=== PATIENT | male | born 1960 | race Caucasian/White ===

== ENCOUNTER 2017-09-20 19:23 | Emergency (ER) | payer BC ==
[2017-09-20 19:42] VITALS: TEMP 98.8
[2017-09-20] MEDS ORDERED: DIAZEPAM 5 MG/ML 2 ML INJ IVP STA (20:15)
[2017-09-20] MEDS ORDERED: GLUCAGON 1 MG/ML VIAL IVP STA (20:15)
[2017-09-20] MEDS ORDERED: SODIUM CHLORIDE 0.9% 500 ML IV ONE (20:16)
--- NOTE | 2017-09-20 20:19 | ED ---
General Adult HPI - General Chief complaint: ENT Stated complaint: food caught in throat Time Seen by Provider: 09/20/17 19:53 Source: patient Mode of arrival: ambulatory Limitations: no limitations - History of Present Illness Initial comments: 56 years old gentleman got some mild meat stuck in his throat he was eating about 1.5R c-collar he feels it's stuck right below the neck is able to breathe well but he is not able to swallow anything he is not drooling though he is swallowing his saliva but he said he is not able to drink anything. No headache no chest pain or shortness of breath has difficulty swallowing no abdominal pain no frequency urgency dysuria - Related Data Home Medications Medication Instructions Recorded Confirmed Ezetimibe [Zetia] 10 mg PO HS 05/31/14 09/20/17 Allergies Allergy/AdvReac Type Severity Reaction Status Date / Time No Known Allergies Allergy Verified 09/20/17 20:21 Review of Systems ROS Statement: Those systems with pertinent positive or pertinent negative responses have been documented in the HPI. ROS Other: All systems not noted in ROS Statement are negative. Past Medical History Past Medical History: Asthma, Hyperlipidemia History of Any Multi-Drug Resistant Organisms: None Reported Past Surgical History: Orthopedic Surgery Past Psychological History: No Psychological Hx Reported Smoking Status: Never smoker Past Alcohol Use History: Occasional Past Drug Use History: None Reported General Exam - General Exam Comments Initial Comments: General: The patient is awake and alert, in no distress, and does not appear acutely ill, anxious he is definitely not drooling Skin: Skin is warm and dry and no rashes or lesions are noted. Eye: Pupils are equal, round and reactive to light, extra-ocular movements are intact; there is normal conjunctiva bilaterally. Ears, nose, mouth and throat: There are moist mucous membranes and no oral lesions. Neck: The neck is supple, there is no tenderness or JVD. Cardiovascular: There is a regular rate and rhythm. No murmur, rub or gallop is appreciated. Respiratory: To auscultation bilateral, no wheezing no rhonchi no distress respiratory packer noticed Gastrointestinal: Soft, non-distended, non-tender abdomen without masses or organomegaly noted. There is no rebound or guarding present. Bowel sounds are unremarkable. Back: There is no tenderness to palpation in the midline. There is no obvious deformity. Musculoskeletal: Normal ROM, no tenderness, There is no pedal edema. There is no calf tenderness or swelling. No cords were appreciated. Neurological: CN II-XII intact, Cranial nerves III through XII are intact. There are no obvious motor or sensory deficits. Coordination appears grossly intact. Speech is normal. Psychiatric: Cooperative, appropriate mood & affect, normal judgment. Limitations: no limitations Course Vital Signs 09/20/17 19:40 Temperature 98.8 F Pulse Rate 99 Respiratory 16 Rate Blood Pressure 153/80 O2 Sat by Pulse 98 Oximetry Patient was reassessed at down at 2145 and he feels great he is able to drink me he feels that the piece of meat stuck in his esophagus has gone down and is right to go home, I offered him a EGD by Dr. Cheng/Dr. Gomez he said he is going to see his family doctor and he'll arrange that through his family doctor Disposition Clinical Impression: Foreign body in esophagus Disposition: HOME SELF-CARE Condition: Good Instructions: Esophageal Foreign Body (ED) Referrals: Miguel Frederick MD [Primary Care Provider] - 1-2 days
[2017-09-20] MEDS ORDERED: SODIUM CHLORIDE 0.9% 1,000 ML IV SCH (20:30)
--- NOTE | 2017-09-20 20:57 | XR ---
EXAMINATION TYPE: XR chest 2V DATE OF EXAM: 09/20/2017 COMPARISON: 05/25/1714 HISTORY: Choking incident and shortness of breath TECHNIQUE: Frontal and lateral views of the chest are obtained. FINDINGS: There is no focal air space opacity, pleural effusion, or pneumothorax seen. The cardiac silhouette size is within normal limits. The osseous structures are intact. No radiopaque foreign b martha. Left hemidiaphragm elevation. Prominent right epicardial fat pad is noted. Deep sulcus on the ri ght is unchanged from the prior. IMPRESSION: No acute cardiopulmonary process. No radiopaque foreign body.
--- NOTE | 2017-09-20 20:59 | XR ---
EXAMINATION TYPE: XR soft tissue neck DATE OF EXAM: 09/20/2017 COMPARISON: NONE HISTORY: Choking incident. Questionable foreign body. TECHNIQUE: Frontal and lateral views of the soft tissues the neck were obtained. FINDINGS: No radiopaque foreign body is seen within the airway or esophagus. Dental fillings are seen within the maxilla and mandible. Oropharynx and nasopharynx appear patent. Prevertebral soft tissues are within normal limits. Mild degenerative changes at C5-C6 are noted with straightening of usual c ervical lordosis. Lung apices are well aerated. IMPRESSION: No pharyngeal narrowing, prevertebral soft tissue swelling or radiopaque foreign body.
[2017-09-20 22:10] VITALS: BP 133/75; PULSE 90; RESP 18
== END 2017-09-20 22:13 | disposition home or self-care (01) ==
LOC: EC 19:23
DX: T18.128A Food in esophagus causing other injury, initial encounter (principal); E78.5 Hyperlipidemia, unspecified; Z79.899 Other long term (current) drug therapy
CPT/HCPCS: 70360; 71046; 99283; 96374; 96375; 96361 ×2; J1610; J3360

== ENCOUNTER 2019-07-25 13:45 | Emergency (ER) | payer BC, OTHER ==
[2019-07-25 14:13] VITALS: BP 130/76; PULSE 75; RESP 20; TEMP 98.6
--- NOTE | 2019-07-25 14:52 | ED ---
Fall HPI - General Chief Complaint: Fall Stated Complaint: Fell/rt elbow hip pain-[facility] Time Seen by Provider: 07/25/19 14:28 Source: patient Mode of arrival: ambulatory - History of Present Illness Initial Comments: Patient is a 58-year-old male presenting to emergency Department with a chief complaint of a fall. Patient reports he was an ice patch when he slipped and fell on his right side. Patient does report making contact with his left hip and elbow. Patient reports the pain level is minimal. He reports full range of motion in the elbow, full strength and no numbness and tingling. Patient denies taking any medication to alleviate the symptoms. Denies any head trauma. He is not on blood thinners. States he was requested by his employer to come to the ED for evaluation. - Related Data Home Medications Medication Instructions Recorded Confirmed Ezetimibe [Zetia] 10 mg PO HS 05/31/14 09/20/17 Allergies Allergy/AdvReac Type Severity Reaction Status Date / Time No Known Allergies Allergy Verified 07/25/19 14:13 Review of Systems ROS Statement: Those systems with pertinent positive or pertinent negative responses have been documented in the HPI. ROS Other: All systems not noted in ROS Statement are negative. Past Medical History Past Medical History: Asthma, Hyperlipidemia History of Any Multi-Drug Resistant Organisms: None Reported Past Surgical History: Orthopedic Surgery Past Psychological History: No Psychological Hx Reported Smoking Status: Never smoker Past Alcohol Use History: Occasional Past Drug Use History: None Reported General Exam Limitations: no limitations General appearance: alert, in no apparent distress Head exam: Present: atraumatic, normocephalic, normal inspection Eye exam: Present: normal appearance Pupils: Present: normal accommodation ENT exam: Present: normal exam Neck exam: Present: normal inspection, full ROM Respiratory exam: Present: normal lung sounds bilaterally Cardiovascular Exam: Present: regular rate, normal rhythm, normal heart sounds Extremities exam: Present: normal inspection, full ROM, tenderness (Very mild tenderness on the posterior aspect of her right elbow. Tenderness at the right hip), normal capillary refill, other (+2 ulnar and radial pulses bilaterally.) Back exam: Present: normal inspection, full ROM Neurological exam: Present: alert, oriented X3 Psychiatric exam: Present: normal affect, normal mood Skin exam: Present: warm, dry, intact, normal color Course Vital Signs 07/25/19 14:11 Temperature 98.6 F Pulse Rate 75 Respiratory 20 Rate Blood Pressure 130/76 O2 Sat by Pulse 99 Oximetry Medical Decision Making - Medical Decision Making Patient is a 58-year-old male presenting to emergency Department with a chief complaint of a fall. On exam patient does have very mild tenderness at the right elbow with full range of motion, full-strength, and no numbness or tingling. Patient patient does have some right hip tenderness but is walking without any issues. X-rays unremarkable of the right hip. Patient advised to follow-up primary care. Strict return parameters were thoroughly discussed with patient is understanding and agreeable. Case discussed with physician. Disposition Clinical Impression: Fall, Right hip pain Disposition: HOME SELF-CARE Condition: Stable Instructions (If sedation given, give patient instructions): Hip Pain (ED) Additional Instructions: Alternate between Tylenol and Motrin for pain control. Return to emergency department if symptoms worsen. Is patient prescribed a controlled substance at d/c from ED?: No Referrals: Miguel Frederick MD [Primary Care Provider] - 1-2 days Time of Disposition: 15:08
--- NOTE | 2019-07-25 15:06 | XR ---
EXAMINATION TYPE: XR Hip Complete RT DATE OF EXAM: 07/25/2019 CLINICAL HISTORY: Pain from fall injury. TECHNIQUE: AP and frogleg views of the right hip are obtained. COMPARISON: None. FINDINGS: There is no acute fracture/dislocation evident in the right hip. Mild axial joint space lo ss right hip without significant spurring. The overlying soft tissue appears unremarkable. IMPRESSION: There is no acute fracture or dislocation in the right hip.
== END 2019-07-25 15:31 | disposition home or self-care (01) ==
LOC: EC 13:45
DX: M25.551 Pain in right hip (principal); E78.5 Hyperlipidemia, unspecified; Z79.899 Other long term (current) drug therapy; W01.0XXA Fall on same level from slipping, tripping and stumbling without subsequent striking against object, initial encounter; Y92.69 Other specified industrial and construction area as the place of occurrence of the external cause; Y99.0 Civilian activity done for income or pay
CPT/HCPCS: 73502; 99283

== ENCOUNTER 2021-12-20 09:50 | Day surgery (SDC) | payer BC ==
[2021-12-18 11:16] VITALS: BMI 30.4
[~2021-12-20 09:50] MED LIST: LACTATED RINGERS 1,000 ML IV SCH; LIDOCAINE 1% (10MG/ML) FOR IV START INTRADERMA PRN
[2021-12-20 10:15] VITALS: TEMP 97.7
[2021-12-20] MEDS ORDERED: PROPOFOL 10 MG/ML 20 ML VIAL IV ONE (10:21)
--- NOTE | 2021-12-20 10:44 | P.PCN ---
Date of Procedure: 12/20/21 Procedure(s) Performed: BRIEF HISTORY: Patient is a 61-year-old pleasant white male scheduled for an elective colonoscopy as a part of screening for colorectal neoplasia. PROCEDURE PERFORMED: Colonoscopy snare polypectomy and Endo Clip placement. PREOPERATIVE DIAGNOSIS: Screening for colon cancer. IV sedation per Anesthesia. PROCEDURE: After informed consent was obtained, the patient, was brought into the endoscopy unit. IV sedation was administered by Anesthesia under continuous monitoring. Digital rectal examination was normal. Initially the Olympus CF-160 flexible video colonoscope was then inserted in the rectum, gradually advanced into the cecum without any difficulty. Careful examination was performed as the scope was gradually being withdrawn. Ileocecal valve and the appendiceal orifice were visualized and appeared normal. Prep was excellent. Mucosa of the cecum, normal. In the ascending colon there was a 3 cm broad-based polyp that was removed by piecemeal snare polypectomy followed by Endo Clip placed. Complete polypectomy was accomplished. Rest of the ascending colon, transverse colon appeared normal. The descending colon there was a 5 cm polyp removed by snare polypectomy., descending colon, sigmoid colon, and rectum appeared normal. Retroflexion was performed in the rectum and no lesions were seen. The patient tolerated the procedure well. IMPRESSION: 3 cm broad-based ascending colon polyp status post piecemeal snare polypectomy followed by Endo Clip placement and complete polypectomy accomplished 5 mm; descending polyp status post polypectomy RECOMMENDATIONS: Findings of this examination were discussed with the patient as well as his family. He was advised to follow with the biopsy results. If the biopsy reveals adenoma he can have a repeat colonoscopy in one year..
[2021-12-20 11:05] VITALS: BP 155/81; PULSE 72; RESP 16
== END 2021-12-20 11:23 | disposition home or self-care (01) ==
LOC: ORWHC2ENDO 09:50
PROVIDERS: ATTEND Internal Medicine Gastroenterology
DX: Z12.11 Encounter for screening for malignant neoplasm of colon (principal); D12.2 Benign neoplasm of ascending colon; D12.4 Benign neoplasm of descending colon; K21.9 Gastro-esophageal reflux disease without esophagitis; E78.5 Hyperlipidemia, unspecified; J45.909 Unspecified asthma, uncomplicated; Z79.51 Long term (current) use of inhaled steroids; Z79.899 Other long term (current) drug therapy
CPT/HCPCS: 88305; 45385; J2704; 45382

== ENCOUNTER → 2022-06-27 | Outpatient (CLI) | payer BC ==
--- NOTE | 2022-06-27 12:18 | US ---
EXAMINATION TYPE: US venous doppler duplex LE RT DATE OF EXAM: 06/27/2022 12:05 PM COMPARISON: NONE CLINICAL HISTORY: M79.661 PAIN IN RT LOWER LIMB. pain SIDE PERFORMED: Right TECHNIQUE: The lower extremity deep venous system is examined utilizing real time linear array sonog dex with graded compression, doppler sonography and color-flow sonography. VESSELS IMAGED: Common Femoral Vein Deep Femoral Vein Greater Saphenous Vein * Femoral Vein Popliteal Vein Small Saphenous Vein * Proximal Calf Veins (* superficial vessels) Right Leg: Negative for DVT Grayscale, color doppler, spectral doppler imaging performed of the deep veins of the right lower ext remity. There is normal flow, compressibility, vascular waveforms. IMPRESSION: No ultrasound evidence for acute DVT in the right lower extremity.
== END | disposition home or self-care (01) ==
LOC: RADUSWWP 11:22
PROVIDERS: ATTEND Internal Medicine Critical Care Medicine
DX: M79.661 Pain in right lower leg (principal)

== ENCOUNTER 2023-02-20 09:15 | Day surgery (SDC) | payer BC ==
[2023-02-20] MEDS ORDERED: LACTATED RINGERS 1,000 ML IV SCH (09:38)
[2023-02-20] MEDS ORDERED: LIDOCAINE 1% (10MG/ML) FOR IV START INTRADERMA PRN (09:38)
[2023-02-20 09:55] VITALS: RESP 16; TEMP 98
[2023-02-20] MEDS ORDERED: PROPOFOL 10 MG/ML 20 ML VIAL IV ONE (10:57)
--- NOTE | 2023-02-20 11:16 | P.PCN ---
Date of Procedure: 02/20/23 Procedure(s) Performed: BRIEF HISTORY: Patient is a 62-year-old pleasant white male scheduled for an elective colonoscopy as a part of surveillance of large 3 cm ascending colon polyp that were noted on a colonoscopy a year ago. Biopsy revealed tubular villous adenoma. He scheduled for an surveillance colonoscopy in one year to ensure complete polypectomy PROCEDURE PERFORMED: Colonoscopy with snare polypectomy and biopsy. PREOPERATIVE DIAGNOSIS: Follow-up large ascending colon polyp. IV sedation per Anesthesia. PROCEDURE: After informed consent was obtained, the patient, was brought into the endoscopy unit. IV sedation was administered by Anesthesia under continuous monitoring. Digital rectal examination was normal. Initially the Olympus CF-160 flexible video colonoscope was then inserted in the rectum, gradually advanced into the cecum without any difficulty. Careful examination was performed as the scope was gradually being withdrawn. Ileocecal valve and the appendiceal orifice were visualized and appeared normal. Prep was excellent. Mucosa of the cecum, appeared normal. In the ascending colon there was a 2 cm with severe flat polyp identified which was removed by smear snare polypectomy by biopsy and complete polypectomy was accomplished. Rest of the ascending colon, transverse colon, descending colon, sigmoid colon, and rectum appeared normal. Retroflexion was performed in the rectum and grade 2 internal hemorrhoids were seen. The patient tolerated the procedure well. IMPRESSION: 2 cm residual flat ascending colon polyp status post piecemeal snare polypectomy followed by biopsy and complete polypectomy accomplished Small internal hemorrhoids RECOMMENDATIONS: Findings of this examination were discussed with the patient as well as his family. He was advised to follow with the biopsy results and the plan a repeat colonoscopy in one year.
[2023-02-20 11:37] VITALS: BP 125/77; PULSE 70
== END 2023-02-20 12:01 | disposition home or self-care (01) ==
LOC: ORWHC2ENDO 09:15
PROVIDERS: ATTEND Internal Medicine Gastroenterology
DX: D12.2 Benign neoplasm of ascending colon (principal); K64.1 Second degree hemorrhoids; E78.5 Hyperlipidemia, unspecified; J45.909 Unspecified asthma, uncomplicated; Z79.899 Other long term (current) drug therapy
CPT/HCPCS: 88305; 45380; 45385; J2704